=== PATIENT | male | born 1970 | race Caucasian/White ===

== ENCOUNTER 2023-05-02 19:51 | Emergency (ER) | payer OTHER ==
[~2023-05-02] VITALS: Ht 172.7 cm; Wt 90.7 kg
[2023-05-02 20:02] VITALS: BP_SYST 128; PULSE 80; RESP 20; TEMP 97.6; O2SAT 97
[2023-05-02] MEDS: IBUPROFEN 600 MG TABLET PO ONE (21:24)
[2023-05-02 21:28] LABS: BASOPHILS # (AUTO) 0.1 K/uL (0.0-0.2); EOSINOPHILS # (AUTO) 0.1 K/uL (0.0-0.4); EOSINOPHILS % (AUTO) 2.4 % (0.0-4.0); HEMATOCRIT 40.8 % (36-54); HEMOGLOBIN 14.2 g/dL (14.0-18.0); LYMPHOCYTES # (AUTO) 2.1 K/uL (1.0-5.5); LYMPHOCYTES % (AUTO) 36.9 % (20.5-51.5); MEAN CORPUSCULAR HEMOGLOBIN 33 pg (27-31); MEAN CORPUSCULAR HGB CONC 35 % (32-36); MEAN CORPUSCULAR VOLUME 94 fL (79.0-98.0); MONOCYTES # (AUTO) 0.6 K/uL (0.0-1.0); MONOCYTES % (AUTO) 11.1 % (1.7-9.3); NEUTROPHILS # (AUTO) 2.7 K/uL (1.8-7.7); NEUTROPHILS % (AUTO) 48.6 % (40.0-70.0); PLATELET COUNT (AUTO) 249 K/uL (130-430); RED BLOOD CELL COUNT(AUTO) 4.37 MIL/uL (4.2-6.2); RED CELL DISTRIBUTION WIDTH 13.7 % (9.0-15.0); WHITE BLOOD COUNT (AUTO) 5.6 K/uL (4.8-10.8)
[2023-05-02 21:50] LABS: ANION GAP 8 (5-15); CALCIUM 8.5 mg/dL (8.4-11.0); CARBON DIOXIDE 27 mmol/L (23-29); CHLORIDE 106 mmol/L (98-107); CREATININE 1.02 mg/dL (0.55-1.30); GFR AFRICAN AMERICAN 98 mL/min (>90); GLUCOSE 98 mg/dL (74-106); POTASSIUM 3.3 mmol/L (3.5-5.1); SODIUM SERUM 141 mmol/L (136-145); UREA NITROGEN, BLOOD 14 mg/dL (8-21)
[2023-05-02 21:53] LABS: GFR NON AFRICAN-AMERICAN 81 mL/min (>90)
[2023-05-02] MEDS ORDERED: IBUP-1969 PO (22:52)
[2023-05-02] MEDS ORDERED: BENZ100C92 PO (22:52)
[2023-05-02 23:07] VITALS: BP_SYST 130; PULSE 84; RESP 18; TEMP 97.6; O2SAT 97
== END 2023-05-02 23:07 | disposition home or self-care (01) ==
LOC: SED 19:51
DX: R07.89 Other chest pain (principal); B34.9 Viral infection, unspecified; R05.9 Cough, unspecified; R06.02 Shortness of breath; Z79.899 Other long term (current) drug therapy
CPT/HCPCS: 36415; 71045; 80048; 84484; 85025; 93005; 99285

== ENCOUNTER 2023-11-22 22:37 | Emergency (ER) | payer OTHER ==
[~2023-11-22] VITALS: Ht 175.3 cm; Wt 90.7 kg
[~2023-11-22 22:37] MED LIST: BENZ100C92 PO; IBUP-1969 PO
[2023-11-22 22:52] VITALS: BP_SYST 130; PULSE 89; RESP 20; TEMP 99.9; O2SAT 94
[2023-11-23 00:55] LABS: BILIRUBIN,URINE NEGATIVE (NEGATIVE); BLOOD, URINE NEGATIVE (NEGATIVE); CLARITY/URINE CLEAR (CLEAR); COLOR,URINE YELLOW (YELLOW); GLUCOSE,URINE NEGATIVE (NEGATIVE); KETONES,URINE TRACE (NEGATIVE); LEUKOCYTE ESTERASE ,URINE NEGATIVE (NEGATIVE); NITRITE, URINE NEGATIVE (NEGATIVE); PROTEIN URINE NEGATIVE (NEGATIVE); UROBILINOGEN,URINE 0.2 (0.2-1.0)
[2023-11-23] MEDS ORDERED: ACYC400T19 PO (01:30)
[2023-11-23 01:58] VITALS: BP_SYST 130; PULSE 89; RESP 20; TEMP 99.9; O2SAT 94
== END 2023-11-23 01:58 | disposition home or self-care (01) ==
LOC: SED 22:37
DX: Z20.2 Contact with and (suspected) exposure to infections with a predominantly sexual mode of transmission (principal); R21 Rash and other nonspecific skin eruption; R35.0 Frequency of micturition; Z79.899 Other long term (current) drug therapy; Z79.2 Long term (current) use of antibiotics
CPT/HCPCS: 36415; 81001; 81003; 86592; 86695; 86696; 87491; 99283